=== PATIENT | male | born 1960 | race Hispanic/Latino ===

== ENCOUNTER 2017-09-14 13:22 | Outpatient (CLI) | payer OTHER | END 2017-09-14 13:23 | disposition home or self-care (01) | LOC: BICCT 13:22 | PROVIDERS: ATTEND Family Medicine | DX: G44.319 Acute post-traumatic headache, not intractable (principal) | CPT/HCPCS: 70450 ==

== ENCOUNTER 2020-05-31 13:41 | Observation (INO) | payer BC, SELFPAY ==
[2020-05-31] MEDS ORDERED: Acetaminophen 325 MG TAB PO PRN (14:07)
[2020-05-31] MEDS ORDERED: Dextrose 50% Abboject 50 ML SYRINGE SLOW IVP PRN (14:28)
[2020-05-31] MEDS ORDERED: Dextrose 5% in Water 1,000 ML IV PRN (14:28)
[2020-05-31] MEDS ORDERED: HumaLOG 300 UNITS/3 ML VIAL SC PRN ×2 (14:28)
[2020-05-31] MEDS ORDERED: Dexamethasone 1 MG TAB PO SCH (15:00)
[2020-05-31 15:11] VITALS: BMI 38.0
[2020-05-31] MEDS ORDERED: diphenhydrAMINE 50 MG CAP PO PRN (15:12)
[2020-05-31 15:25] LABS: Hemoglobin A1c 5.2 % (4.0-6.0)
[2020-05-31 16:35] LABS: Cardiac Risk 4.1 (Less than 4.5)
[2020-05-31] MEDS ORDERED: Metoclopramide HCl 10 MG TAB PO SCH ×2 (17:00→17:15)
[2020-05-31] MEDS ORDERED: diphenhydrAMINE 50 MG CAP PO SCH (17:15)
[2020-06-01] MEDS ORDERED: Dexamethasone 4 MG TAB PO SCH (08:00)
[2020-06-01] MEDS ORDERED: FLU VACC QS2020-21(6MOS UP)/PF 60 MCG/0.5 ML SYRINGE IM ONE (09:00)
[2020-06-01] MEDS ORDERED: Enoxaparin Sodium 40 MG/0.4 ML SYRINGE SC SCH (09:00)
[2020-06-01] MEDS ORDERED: Ondansetron ODT 4 MG TAB PO SCH (09:00)
[2020-06-01] MEDS ORDERED: Prevnar 13-Val Conj/PF 0.5 ML SYRINGE IM ONE (09:00)
[2020-06-01 18:29] VITALS: BP 144/89; TEMP 98.6
== END 2020-06-01 18:41 | disposition home or self-care (01) ==
LOC: INTOOBSV 13:48 → T4-B 13:48
PROVIDERS: ADMIT Family Medicine; ATTEND Family Medicine
DX: U07.1 COVID-19 (principal); J12.82 Pneumonia due to coronavirus disease 2019; Z88.5 Allergy status to narcotic agent
CPT/HCPCS: 36415; 70450; 80061; 82728; 83036; 83630; 84145; 85379; 86140; 87045; 87046; 87324; 87427; 87449; 96372; G0378; J1650; J8540; Q0162

== ENCOUNTER 2020-06-03 03:00 | Emergency (ER) | payer SELFPAY ==
[2020-06-03] MEDS ORDERED: Dexamethasone 10 MG/ML VIAL ONE (03:28)
[2020-06-03] MEDS ORDERED: Metoclopramide HCl 10 MG/2 ML VIAL ONE (03:28)
[2020-06-03] MEDS ORDERED: diphenhydrAMINE 50 MG/ML VIAL ONE ×2 (03:28→03:33)
[2020-06-03] MEDS ORDERED: Ketorolac Tromethamine 30 MG/ML VIAL ONE (03:28)
== END 2020-06-03 04:44 | disposition home or self-care (01) ==
LOC: ERS 03:00
DX: U07.1 COVID-19 (principal)
CPT/HCPCS: 71045; 93005; 96374; 96375; J1100; J1200; J1885; J2765

== ENCOUNTER 2020-06-05 10:21 | Emergency (ER) | payer SELFPAY ==
[2020-06-05 11:09] LABS: #Lymphocytes 1.4 thou/uL (1.20-3.40); #Monocytes 0.7 thou/uL (0.11-0.59); #Neutrophils 6.5 thou/uL (1.40-6.50); %Basophils 0.1 % (0.0-1.0); %Eosinophils 0.3 % (0.0-10.0); %Lymphocytes 15.9 % (21.0-51.0); %Monocytes 8.1 % (0.0-10.0); %Neutrophils 75.6 % (42.0-75.0); Hemoglobin 13.9 g/dL (14.0-18.0); Mean Corpuscular HGB CONC 34.2 g/dL (32.0-36.0); Mean Corpuscular Hemoglobin 30.7 pg (27.0-31.0); Mean Corpuscular Volume 89.8 fL (78.0-98.0); Mean Platelet Volume 5.8 fL (7.4-10.4); Platelet Count 426 thou/uL (130-400); Red Blood Cell (RBC) Count 4.51 mill/uL (4.70-6.10); White Blood Cell (WBC) Count 8.6 thou/uL (4.8-10.8)
[2020-06-05 11:30] LABS: ALT (SGPT) 28 U/L (8-55); AST (SGOT) 17 U/L (5-34); Albumin 3.5 g/dL (3.4-4.8); Alkaline Phosphatase 73 U/L (40-110); Anion Gap 16 mmol/L (10-20); BUN (Urea Nitrogen) 10 mg/dL (8.4-25.7); Bilirubin, Total 1.3 mg/dL (0.2-1.2); Calc. Creatinine Clearance 0 mL/min (70-130); Calcium 8.8 mg/dL (7.8-10.44); Carbon Dioxide 24 mmol/L (23-31); Chloride 101 mmol/L (98-107); Globulin 3.9 g/dL (2.4-3.5); Glucose 94 mg/dL (80-115); Potassium 3.6 mmol/L (3.5-5.1); Protein, Total 7.4 g/dL (5.8-8.1); Sodium 137 mmol/L (136-145)
[2020-06-05] MEDS ORDERED: Dexamethasone 10 MG/ML VIAL ONE (11:54)
[2020-06-05] MEDS ORDERED: Metoclopramide 10 MG/10 ML UDCUP ONE (11:54)
[2020-06-05] MEDS ORDERED: diphenhydrAMINE 50 MG/ML VIAL ONE (11:54)
[2020-06-05] MEDS ORDERED: Metoclopramide HCl 10 MG/2 ML VIAL ONE (11:55)
[2020-06-05] MEDS ORDERED: Ketorolac Tromethamine 30 MG/ML VIAL ONE (14:41)
[2020-06-05] MEDS ORDERED: Magnesium 2 GM/50 ML BAG (IN WATER) ONE (14:41)
== END 2020-06-05 15:33 | disposition home or self-care (01) ==
LOC: ERS 10:21
DX: U07.1 COVID-19 (principal); J12.82 Pneumonia due to coronavirus disease 2019
CPT/HCPCS: 71045; 80053; 83605; 83880; 84484; 85025; 85379; 93005; 96365; 96366; 96367; 96375; J1100; J1200; J1885; J2765; J3475

== ENCOUNTER 2020-11-06 11:40 | Emergency (ER) | payer BC, OTHER ==
[2020-11-06] MEDS ORDERED: Famotidine/PF 20 mg/2ml Vial ONE (12:14)
[2020-11-06] MEDS ORDERED: methylPREDNISolone Sod Succ/PF 125 MG/2 ML VIAL ONE (12:14)
== END 2020-11-06 14:35 | disposition home or self-care (01) ==
LOC: ERS 11:40
DX: T63.461A Toxic effect of venom of wasps, accidental (unintentional), initial encounter (principal)
CPT/HCPCS: 96374; 96375; J2930; S0028

== ENCOUNTER 2024-10-21 20:59 | Observation (INO) | payer BC, MEDICARE ==
[2024-10-21 22:31] LABS: #Basophils 0.03 10x3/uL (0.0-0.2); #Eosinophils 0.13 10x3/uL (0.0-0.7); #Monocytes 0.65 10x3/uL (0.11-0.59); #Neutrophils 4.98 10x3/uL (1.40-6.50); %Basophils 0.4 % (0.0-1.0); %Eosinophils 1.5 % (0.0-10.0); %Lymphocytes 30.8 % (21.0-51.0); %Monocytes 7.7 % (0.0-10.0); %Neutrophils 59.2 % (42.0-75.0); Hematocrit 37.1 % (42.0-52.0); Hemoglobin 12.8 g/dL (14.0-18.0); Mean Corpuscular Hemoglobin 29.8 pg (27.0-31.0); Mean Corpuscular Volume 86.3 fL (78.0-98.0); Platelet Count 274 10x3/uL (130-400); Red Blood Cell (RBC) Count 4.30 mill/uL (4.70-6.10); White Blood Cell (WBC) Count 8.41 10x3/uL (4.8-10.8)
[2024-10-21 22:49] LABS: ALT (SGPT) 26 U/L (Less than 45); AST (SGOT) 38 U/L (11-34); Albumin 3.4 g/dL (3.1-4.5); Alkaline Phosphatase 72 U/L (40-110); Anion Gap 14 mmol/L (10-20); BUN (Urea Nitrogen) 16 mg/dL (8.4-25.7); Bilirubin, Total 0.5 mg/dL (0.3-1.2); Calc. Creatinine Clearance 0 mL/min (70-130); Calcium 8.4 mg/dL (7.8-10.44); Carbon Dioxide 19 mmol/L (23-31); Chloride 108 mmol/L (98-107); Globulin 3.4 g/dL (2.4-3.5); Glucose 111 mg/dL (80-115); Lipase 61 U/L (8-78); Potassium 3.8 mmol/L (3.5-5.1); Sodium 137 mmol/L (136-145)
[2024-10-21 22:54] LABS: Troponin I 0.012 ng/mL (< 0.028)
[2024-10-21] MEDS ORDERED: Aspirin Chewable 81 MG TAB ONE (23:36)
[2024-10-22] MEDS ORDERED: Nitroglycerin 0.4 MG TAB 1 EACH ONE (00:08)
[2024-10-22] MEDS ORDERED: Acetaminophen 325 MG TAB PO PRN (00:44)
[2024-10-22] MEDS ORDERED: Ondansetron PF 4 MG/2 ML Vial IVP PRN (00:44)
[2024-10-22] MEDS ORDERED: Nitroglycerin 0.4 MG TAB (25 Tab Bottle) SL PRN (01:05)
[2024-10-22 01:58] VITALS: BMI 39.0
[2024-10-22 03:04] LABS: Troponin I 0.017 ng/mL (< 0.028)
[2024-10-22 05:59] LABS: Troponin I 0.013 ng/mL (< 0.028)
[2024-10-22 06:01] LABS: Anion Gap 9 mmol/L (10-20); BUN (Urea Nitrogen) 12 mg/dL (8.4-25.7); Calc. Creatinine Clearance 138 mL/min (70-130); Calcium 7.8 mg/dL (7.8-10.44); Carbon Dioxide 24 mmol/L (23-31); Chloride 108 mmol/L (98-107); Glucose 91 mg/dL (80-115); Potassium 3.9 mmol/L (3.5-5.1); Sodium 137 mmol/L (136-145)
[2024-10-22 07:16] LABS: #Basophils 0.03 10x3/uL (0.0-0.2); #Eosinophils 0.12 10x3/uL (0.0-0.7); #Monocytes 0.47 10x3/uL (0.11-0.59); #Neutrophils 3.53 10x3/uL (1.40-6.50); %Basophils 0.4 % (0.0-1.0); %Eosinophils 1.7 % (0.0-10.0); %Lymphocytes 40.5 % (21.0-51.0); %Monocytes 6.7 % (0.0-10.0); %Neutrophils 50.3 % (42.0-75.0); Hematocrit 36.1 % (42.0-52.0); Hemoglobin 12.2 g/dL (14.0-18.0); Mean Corpuscular Hemoglobin 29.8 pg (27.0-31.0); Mean Corpuscular Volume 88.0 fL (78.0-98.0); Platelet Count 248 10x3/uL (130-400); Red Blood Cell (RBC) Count 4.10 mill/uL (4.70-6.10); White Blood Cell (WBC) Count 7.03 10x3/uL (4.8-10.8)
[2024-10-22] MEDS: Pantoprazole 40 MG VIAL IVP SCH (15:39)
[2024-10-22] MEDS ORDERED: Communication Order-Pharmacy FS SCH (16:45)
[2024-10-22] MEDS: Aspirin 81 mg Enteric Coated Tablet PO SCH (18:18)
[2024-10-23 02:43] VITALS: TEMP 97.6
[2024-10-23] MEDS ORDERED: Heparin 10,000 UNITS/ 10 ML VIAL ONE (07:03)
[2024-10-23] MEDS ORDERED: Lidocaine 1% (PF) 30 ML VIAL ONE (07:03)
[2024-10-23] MEDS: Pantoprazole 40 MG DR.TAB PO SCH (07:35)
[2024-10-23] MEDS: Aspirin 81 mg Enteric Coated Tablet PO SCH (07:35)
[2024-10-23] MEDS ORDERED: Nitroglycerin 50 MG/250 ML BOT 250 ML ONE (08:24)
[2024-10-23] MEDS ORDERED: Nitroglycerin 0.4 MG TAB (25 Tab Bottle) SL PRN (08:38)
[2024-10-23 10:06] LABS: Cardiac Risk 5.5 (Less than 4.5); Cholesterol 126.0 mg/dl (< 200 Desired); HDL Cholesterol 23.0 mg/dL (>60 Neg Risk); LDL Cholesterol, Calculated 74.0 mg/dL; Triglycerides 147.0 mg/dL (Less than 150)
[2024-10-23 13:17] VITALS: BP 141/68
== END 2024-10-23 16:23 | disposition home or self-care (01) ==
LOC: ERS 20:59 → OBS 10-22 00:37
PROVIDERS: ADMIT Internal Medicine; ATTEND Internal Medicine
DX: R07.89 Other chest pain (principal); Z88.5 Allergy status to narcotic agent
CPT/HCPCS: 70450; 71045; 78452; 80048; 80053; 83690; 83880; 84484 ×3; 85025 ×2; 93005; 93017; A9502; J2470; J2785 ×2; 36415; 80061; 93306; 93454; 99152; 99153; C1769; C1887; C1894; J1644; J2250; J3010; J7030